=== PATIENT | male | born 1990 | race African-American/Black ===

== ENCOUNTER 2023-07-31 20:00 | Emergency (ER) | payer MEDICAID ==
[2023-07-31 20:15] VITALS: BP 134/79; O2SAT 97
--- NOTE | 2023-07-31 20:44 | XRAY Report ---
PROCEDURE: Hand 3+V RT INDICATIONS: R hand injury/ a 50# box fell onto hand. Swollen TECHNIQUE: 4 views of the hand(s) acquired. COMPARISON: None. FINDINGS: Bones: No fractures or dislocations. No suspicious bony lesions. Soft tissues: Soft tissue swelling suspected. No suspicious soft tissue calcifications or masses. IMPRESSION: No fracture or dislocation. Consider follow-up radiographs in 10-14 days. Reviewed by: Chiki Brand MD on 07/31/2023 8:42 PM PDT Approved by: Chiki Brand MD on 07/31/2023 8:42 PM PDT Station ID: [id number]
--- NOTE | 2023-07-31 21:21 | ED Physician Documentation ---
PD HPI UPPER EXT INJURY - Stated complaint Stated Complaint: RT HAND INJ - Chief complaint Chief Complaint: Trauma Ext - History obtained from History obtained from: Patient - History of Present Illness Location: Right, Hand Where injury occurred: Home Timing - onset: How many days ago (3) Timing - duration: Days (3) Timing - details: Abrupt onset Pain level max: 8 Pain level now: 8 Improved by: Rest, Immobilization Worsened by: Moving, Palpating Associated symptoms: Swelling. No: Weakness, Numbness, Tingling Contributing factors: No: Anticoagulated - Additonal information Additional information: Patient is a 32-year-old male who states that there was a bag inside a box that fell and crushed his right hand. This occurred approximately 3 days ago. He states since that time he has had continued swelling and pain to the right hand. Worse with movement and palpation. No numbness or tingling. 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 Review of Systems Constitutional: denies: Fever, Chills GI: denies: Vomiting, Diarrhea Neurologic: denies: Head injury PD PAST MEDICAL HISTORY - Past Medical History Past Medical History: Yes Respiratory: Asthma - Past Surgical History Past Surgical History: No - Present Medications Home Medications: Ambulatory Orders Medication Instructions Recorded Confirmed No Known Home Medications 07/31/23 07/31/23 - Allergies Allergies/Adverse Reactions: Allergies Allergy/AdvReac Type Severity Reaction Status Date / Time No Known Drug Allergies Allergy Verified 07/31/23 20:13 - Social History Does the pt smoke?: No Smoking Status: Never smoker Does the pt drink ETOH?: Yes ETOH Use: Beer Does the pt have substance abuse?: No - Immunizations Immunizations are current?: Yes - POLST Patient has POLST: No PD ED PE NORMAL - Vitals Vital signs reviewed: Yes - General General: Alert and oriented X 3, No acute distress - HEENT HEENT: Moist mucous membranes - Derm Derm: Warm and dry - Extremities Extremities: Other (Right hand - Tender to palpation and mild swelling to the dorsum of the hand. Neurovascular intact. Brisk cap refill. No snuffbox tenderness. The tenderness is diffuse over the dorsum of the hand. Tendons intact and tested against resistance. Otherwise normal examination of the right arm.) - Neuro Neuro: Alert and oriented X 3 Results - Vitals Vitals: Vital Signs - 24 hr 07/31/23 20:05 Temperature 36.5 C Heart Rate 115 H Respiratory 16 Rate Blood Pressure 134/79 H O2 Saturation 97 Oxygen O2 Source Room air - Rads (name of study) Right hand x-ray Relevant Findings:: Final report received, See rad report Procedures - Splint (location) - Minor R hand Splint applied by: Physician, Nurse Type of splint: Fiberglass, Volar cock up Other: Patient tolerated well, No complications, Neurovascular intact PD Medical Decision Making - ED course Complexity details: reviewed results, re-evaluated patient, considered differential, d/w patient ED course: No acute findings on x-ray. Placed in a volar splint for comfort. He declines any pain medication here or for home. We discussed leaving the hand without a splint, but patient feels like the splint would be more comfortable. Informed him not to wear the splint for longer than a few days. Recommend that he follow-up with his PCP if he is still having pain at that time. Neurovascular intact. No snuffbox tenderness. No evidence of significant tendon injury. Patient counseled regarding signs and symptoms for which I believe and urgent re-evaluation would be necessary. Patient with good understanding of and agreement to plan and is comfortable going home at this time This document was made in part using voice recognition software. While efforts are made to proofread this document, sound alike and grammatical errors may occur. Departure - Departure Disposition: 01 Home, Self Care Clinical Impression: Contusion of hand Qualifiers: Encounter type: initial encounter Laterality: right Qualified Code(s): S60.221A - Contusion of right hand, initial encounter Condition: Good Instructions: ED Contusion Hand Follow-Up: your,doctor in 1 week [Other] Comments: Your x-ray does not show any acute abnormalities today. You are placed in a splint for comfort. You can wear this as needed but not longer than 4 to 5 days. You can use Motrin or Tylenol as needed for pain. Return if you worsen. Forms: PCP List
== END 2023-07-31 21:30 | disposition home or self-care (01) ==
LOC: ED 20:00
DX: S60.221A Contusion of right hand, initial encounter (principal); X58.XXXA Exposure to other specified factors, initial encounter; Y92.009 Unspecified place in unspecified non-institutional (private) residence as the place of occurrence of the external cause
CPT/HCPCS: 29125; 99283